=== PATIENT | male | born 1980 | race Two or more races ===

== ENCOUNTER 2025-06-19 10:31 | Emergency (ER) | payer OTHER ==
[~2025-06-19] VITALS: Ht 175.3 cm; Wt 81.6 kg
[2025-06-19] MEDS ORDERED: MOMETASONE FURO17 GM NASAL (11:43)
[2025-06-19] MEDS ORDERED: BUTENAFINE HCL30 GM TOP (11:43)
[2025-06-19] MEDS ORDERED: SALINE NASAL M126 ML NASAL (15:05)
== END 2025-06-19 13:24 | disposition home or self-care (01) ==
LOC: ER 10:31
DX: J32.9 Chronic sinusitis, unspecified (principal); B35.3 Tinea pedis